=== PATIENT | male | born 1975 | race Hispanic/Latino ===

== ENCOUNTER 2020-09-11 03:03 | Emergency (ER) | payer BC ==
[2020-09-11] MEDS ORDERED: ONDANSETRON 4 MG/2 ML VIAL ONE (03:35)
[2020-09-11] MEDS ORDERED: MORPHINE 4 MG/ML SYR ONE (03:35)
[2020-09-11 03:47] LABS: Absolute Lymphocytes (CBC) 3.5 K/uL (0.7-4.9); Basophils % 0.6 % (0-1.3); Hematocrit 44.4 % (39.6-49.0); MPV 9.7 fL (7.6-11.3); RBC Red Blood Cell Count 4.72 M/uL (4.33-5.43)
[2020-09-11] MEDS ORDERED: FENTANYL CITR 100 MCG/2 ML ONE (04:00)
[2020-09-11] MEDS ORDERED: NA CHLORIDE 0.9% 1,000 ML ONE (04:01)
[2020-09-11 04:09] LABS: Albumin 3.9 g/dL (3.4-5.0); Bilirubin Direct 0.1 mg/dL (0-0.2); Bilirubin Total 0.4 mg/dL (0.2-1.0); Potassium 3.6 mmol/L (3.5-5.1); Protein, Total 8.1 g/dL (6.4-8.2)
[2020-09-11 04:22] LABS: Urine Blood 3+ (NEG); Urine Glucose NEGATIVE (NEG); Urine Protein 2+ (NEG); Urine Specific Gravity >1.030 (1.005-1.030)
[2020-09-11 04:28] LABS: Urine Bacteria 20-50 /HPF (NONE SEEN); Urine Culture Reflex Order REFLEXED; Urine Mucus 2+ /HPF (NONE SEEN); Urine RBC >50 /HPF (NONE SEEN)
--- NOTE | 2020-09-11 05:09 | EDPHYS ---
Physician Documentation [facility] Name: Gordy Quevedo Age: 45 yrs Sex: Male : 1975 Arrival Date: 09/11/2020 Time: 03:05 Bed 5 Private MD: ED Physician Sunday Chang HPI: 09/11 03:24 This 45 yrs old Male presents to ER via Unassigned with complaints of Back tw4 Pain. 03:24 The patient presents with pain that is acute. The symptoms are located in the low back. tw4 Onset: The symptoms/episode began/occurred today. Associated signs and symptoms: The patient has no apparent associated signs or symptoms. The problem was sustained The pain radiates to the groin, without known cause. Modifying factors: The patient symptoms are alleviated by nothing, the patient symptoms are aggravated by nothing. Severity of symptoms: At their worst the symptoms were moderate, in the emergency department the symptoms are unchanged. The patient has not experienced similar symptoms in the past. Historical: - Allergies: 03:15 No Known Allergies; jb4 - Home Meds: 03:15 None [Active]; jb4 - PMHx: 03:15 Kidney stones; jb4 - PSHx: 03:15 right knee; jb4 - Immunization history:: Adult Immunizations up to date. - Social history:: Smoking status: Patient denies any tobacco usage or history of. Patient uses alcohol, occasionally. Patient/guardian denies using street drugs. ROS: 03:24 Constitutional: Negative for fever, chills, and weight loss, Eyes: Negative for injury, tw4 pain, redness, and discharge, Cardiovascular: Negative for chest pain, palpitations, and edema, Respiratory: Negative for shortness of breath, cough, wheezing, and pleuritic chest pain, Abdomen/GI: Negative for abdominal pain, nausea, vomiting, diarrhea, and constipation, MS/Extremity: Negative for injury and deformity, Skin: Negative for injury, rash, and discoloration, Neuro: Negative for headache, weakness, numbness, tingling, and seizure. 03:24 Back: Positive for radiated pain. 03:24 : Positive for testicular pain Exam: 03:24 Constitutional: This is a well developed, well nourished patient who is awake, alert, tw4 and in no acute distress. Head/Face: Normocephalic, atraumatic. Chest/axilla: Normal chest wall appearance and motion. Nontender with no deformity. No lesions are appreciated. Cardiovascular: Regular rate and rhythm with a normal S1 and S2. No gallops, murmurs, or rubs. Normal PMI, no JVD. No pulse deficits. Respiratory: Lungs have equal breath sounds bilaterally, clear to auscultation and percussion. No rales, rhonchi or wheezes noted. No increased work of breathing, no retractions or nasal flaring. Abdomen/GI: Soft, non-tender, with normal bowel sounds. No distension or tympany. No guarding or rebound. No evidence of tenderness throughout. Male : Normal genitalia with no discharge or lesions. MS/ Extremity: Pulses equal, no cyanosis. Neurovascular intact. Full, normal range of motion. Neuro: Awake and alert, GCS 15, oriented to person, place, time, and situation. Cranial nerves II-XII grossly intact. Motor strength 5/5 in all extremities. Sensory grossly intact. Cerebellar exam normal. Normal gait. Vital Signs: 03:15 BP 162 / 89; Pulse 87; Resp 16; Temp 96.7(TE); Pulse Ox 97% on R/A; Weight 131.54 kg jb4 (R); Height 5 ft. 11 in. (180.34 cm); Pain 10/10; 04:00 BP 167 / 94; Pulse 78; Resp 16; Pulse Ox 96% on R/A; jb4 05:26 BP 138 / 90; Pulse 78; Resp 18; Temp 98; Pulse Ox 98% on R/A; ea 03:15 Body Mass Index 40.45 (131.54 kg, 180.34 cm) jb4 MDM: 03:18 Patient medically screened. tw4 06:35 Data reviewed: vital signs, nurses notes. Data reviewed: lab test result(s), CBC, tw4 electrolytes, hepatic panel, radiologic studies, CT scan. Data interpreted: Pulse oximetry: Interpretation: normal. Counseling: I had a detailed discussion with the patient and/or guardian regarding: the historical points, exam findings, and any diagnostic results supporting the discharge/admit diagnosis, lab results, radiology results. Medication response: morphine partially relieved the patient's pain. Response to treatment: the patient's symptoms have resolved after treatment, and as a result, I will discharge patient. Special discussion: Based on the patient's Hx, exam, and Dx evaluation, there is no indication for emergent surgery or inpatient Tx. It is understood by the patient/guardian that if the Sx's persist or worsen they need to return immediately for re-evaluation. 09/11 03:20 Order name: Basic Metabolic Panel 4 09/11 03:20 Order name: CBC with Diff tw4 09/11 03:20 Order name: Hepatic Function tw4 09/11 03:20 Order name: Lipase tw4 09/11 03:56 Order name: Urine Microscopic Only ea 09/11 04:16 Order name: Urine Dipstick--Ancillary (enter results) tt3 09/11 03:20 Order name: IV Saline Lock; Complete Time: 03:24 tw4 09/11 03:30 Order name: CT Stone Protocol 4 09/11 04:30 Order name: Urine Culture EDSC 09/11 03:20 Order name: Labs collected and sent; Complete Time: 03:24 [facility] 09/11 03:20 Order name: Urine Dipstick-Ancillary (obtain specimen); Complete Time: 05:12 tw4 Administered Medications: 03:31 Drug: morphine 4 mg Route: IVP; Site: right antecubital; 4 04:00 Follow up: Response: No adverse reaction; Pain is decreased; RASS: Alert and Calm (0) 4 03:31 Drug: Zofran (Ondansetron) 4 mg Route: IVP; Site: right antecubital; jb4 04:00 Follow up: Response: No adverse reaction; Nausea is decreased jb4 03:52 Drug: fentaNYL (PF) 25 mcg {Note: rass score 0.} Route: IVP; Site: right antecubital; jb4 04:20 Follow up: Response: No adverse reaction; Pain is decreased; RASS: Alert and Calm (0) 4 03:52 Drug: NS 0.9% 1000 ml Route: IV; Rate: 1 bolus; Site: right antecubital; jb4 04:45 Follow up: Response: No adverse reaction; IV Status: Completed infusion jb4 04:21 Drug: fentaNYL (PF) 25 mcg Route: IVP; Site: right antecubital; jb4 04:50 Follow up: Response: No adverse reaction; Pain is decreased; RASS: Alert and Calm (0) jb4 Disposition: 09/11/20 05:09 Discharged to Home. Impression: Calculus of ureter. - Condition is Stable. - Discharge Instructions: Renal Colic, Kidney Stones, [id number]. - Prescriptions for Ibuprofen 800 mg Oral Tablet - take 1 tablet by ORAL route every 8 hours As needed take with food; 30 tablet. Tylenol- Codeine #3 300-30 mg Oral Tablet - take 2 tablet by ORAL route every 6 hours As needed; 30 tablet. Zofran 4 mg Oral Tablet - take 1 tablet by ORAL route every 12 hours As needed; 6 tablet. Flomax 0.4 mg Oral Capsule, Sust. Release 24 hr - take 1 capsule by ORAL route once daily 1/2 hour following the same meal each day; 30 capsule. - Work release form, Medication Reconciliation Form, Thank You Letter, Antibiotic Education, Prescription Opioid Use form. - Follow up: Private Physician; When: Upon discharge from the Emergency Department; Reason: Recheck today's complaints, Continuance of care, Re-evaluation by your physician. Follow up: Kat Carrillo MD; When: Upon discharge from the Emergency Department; Reason: Recheck today's complaints, Continuance of care, Re-evaluation by your physician. - Problem is new. - Symptoms have improved. Signatures: Dispatcher [employer] EDFlavio Soriano RN RN jb4 Denise Capps RN RN ea Wadley, Terrence, MD MD tw4 Corrections: (The following items were deleted from the chart) 05:10 05:09 09/11/2020 05:09 Discharged to Home. Impression: Calculus of ureter. Condition is tw4 Stable. Forms are Medication Reconciliation Form, Thank You Letter, Antibiotic Education, Prescription Opioid Use. Follow up: Private Physician; When: Upon discharge from the Emergency Department; Reason: Recheck today's complaints, Continuance of care, Re-evaluation by your physician. Problem is new. Symptoms have improved. tw4 05:29 05:10 09/11/2020 05:09 Discharged to Home. Impression: Calculus of ureter. Condition is ea Stable. Discharge Instructions: Renal Colic, Kidney Stones, [id number]. Prescriptions for Ibuprofen 800 mg Oral Tablet - take 1 tablet by ORAL route every 8 hours As needed take with food; 30 tablet, Tylenol-Codeine #3 300-30 mg Oral Tablet - take 2 tablet by ORAL route every 6 hours As needed; 30 tablet, Zofran 4 mg Oral Tablet - take 1 tablet by ORAL route every 12 hours As needed; 6 tablet, Flomax 0.4 mg Oral Capsule, Sust. Release 24 hr - take 1 capsule by ORAL route once daily 1/2 hour following the same meal each day; 30 capsule. and Forms are Medication Reconciliation Form, Thank You Letter, Antibiotic Education, Prescription Opioid Use. Follow up: Private Physician; When: Upon discharge from the Emergency Department; Reason: Recheck today's complaints, Continuance of care, Re-evaluation by your physician. Follow up: Kat Carrillo; When: Upon discharge from the Emergency Department; Reason: Recheck today's complaints, Continuance of care, Re-evaluation by your physician. Problem is new. Symptoms have improved. tw4
--- NOTE | 2020-09-11 05:09 | ER ---
Nurse's Notes [facility] Name: Gordy Quevedo Age: 45 yrs Sex: Male : 1975 Arrival Date: 09/11/2020 Time: 03:05 Bed 5 Private MD: Diagnosis: Calculus of ureter Presentation: 09/11 03:15 Chief complaint: Patient states: I am having left sided testicular pain and back pain. jb4 It started at 1 am. I woke up and tried to pee and I couldn't. I had a kidney stone in the past and it felt just like this. 03:15 Coronavirus screen: Client denies travel out of the [place] in the last 14 days. At this jb4 time, the client does not indicate any symptoms associated with coronavirus-19. Ebola Screen: No symptoms or risks identified at this time. Initial Sepsis Screen: Does the patient meet any 2 criteria? No. Patient's initial sepsis screen is negative. Does the patient have a suspected source of infection? No. Patient's initial sepsis screen is negative. Risk Assessment: Do you want to hurt yourself or someone else? Patient reports no desire to harm self or others. Onset of symptoms was September 11, 2020. Transition of care: patient was not received from another setting of care. 03:15 Method Of Arrival: Wheelchair jb4 03:15 Acuity: LASHA 2 jb4 Historical: - Allergies: 03:15 No Known Allergies; jb4 - Home Meds: 03:15 None [Active]; jb4 - PMHx: 03:15 Kidney stones; jb4 - PSHx: 03:15 right knee; jb4 - Immunization history:: Adult Immunizations up to date. - Social history:: Smoking status: Patient denies any tobacco usage or history of. Patient uses alcohol, occasionally. Patient/guardian denies using street drugs. Screenin:15 Abuse screen: Denies threats or abuse. Nutritional screening: No deficits noted. jb4 Tuberculosis screening: No symptoms or risk factors identified. Fall Risk None identified. Assessment: 03:15 General: Appears in no apparent distress. uncomfortable, Behavior is calm, cooperative, jb4 appropriate for age. Pain: Complains of pain in left testicle Pain radiates to left low back Pain currently is 10 out of 10 on a pain scale. Quality of pain is described as shooting, stabbing. Neuro: Level of Consciousness is awake, alert, obeys commands, Oriented to person, place, time, situation. Cardiovascular: Patient's skin is warm and dry. Respiratory: Airway is patent Respiratory effort is even, unlabored, Respiratory pattern is regular, symmetrical. GI: No signs and/or symptoms were reported involving the gastrointestinal system. : Reports pain in left flank(s), in lower back testicle. EENT: No signs and/or symptoms were reported regarding the EENT system. Derm: Skin is intact, Skin is pink, warm \T\ dry. Musculoskeletal: Circulation, motion, and sensation intact. Range of motion: intact in all extremities. 04:13 Reassessment: Patient appears in no apparent distress at this time. Patient and/or jb4 family updated on plan of care and expected duration. Pain level reassessed. Patient is alert, oriented x 3, equal unlabored respirations, skin warm/dry/pink. PT reports pain is still /10, provider notified, see MAR for orders. Patient states feeling better. 05:21 Reassessment: Patient appears in no apparent distress at this time. Patient and/or jb4 family updated on plan of care and expected duration. Pain level reassessed. Patient is alert, oriented x 3, equal unlabored respirations, skin warm/dry/pink. 05:25 Reassessment: Patient and/or family updated on plan of care and expected duration. Pain ea level reassessed. Patient is alert, oriented x 3, equal unlabored respirations, skin warm/dry/pink. Discharge instruction given to patient, verbalized the understanding of instruction. Pt left ED ambulatory tolerating well. Vital Signs: 03:15 BP 162 / 89; Pulse 87; Resp 16; Temp 96.7(TE); Pulse Ox 97% on R/A; Weight 131.54 kg jb4 (R); Height 5 ft. 11 in. (180.34 cm); Pain 10/10; 04:00 BP 167 / 94; Pulse 78; Resp 16; Pulse Ox 96% on R/A; jb4 05:26 BP 138 / 90; Pulse 78; Resp 18; Temp 98; Pulse Ox 98% on R/A; ea 03:15 Body Mass Index 40.45 (131.54 kg, 180.34 cm) jb4 ED Course: 03:05 Patient arrived in ED. ag3 03:15 Arm band placed on right wrist. jb4 03:15 Patient has correct armband on for positive identification. Placed in gown. Bed in low jb4 position. Call light in reach. Side rails up X 1. Pulse ox on. NIBP on. 03:18 Sunday Chang MD is Attending Physician. tw4 03:21 Flavio Brooks, RN is Primary Nurse. jb4 03:25 Initial lab(s) drawn, by ED staff, sent to lab. Inserted saline lock: 22 gauge in right jb4 antecubital area, using aseptic technique. Blood collected. 03:27 Triage completed. jb4 04:48 CT Stone Protocol In Process Unspecified. EDMS 05:10 Kat Carrillo MD is Referral Physician. tw4 05:25 No provider procedures requiring assistance completed. IV discontinued, intact, ea bleeding controlled, No redness/swelling at site. Pressure dressing applied. Administered Medications: 03:31 Drug: morphine 4 mg Route: IVP; Site: right antecubital; 4 04:00 Follow up: Response: No adverse reaction; Pain is decreased; RASS: Alert and Calm (0) 4 03:31 Drug: Zofran (Ondansetron) 4 mg Route: IVP; Site: right antecubital; jb4 04:00 Follow up: Response: No adverse reaction; Nausea is decreased jb4 03:52 Drug: fentaNYL (PF) 25 mcg {Note: rass score 0.} Route: IVP; Site: right antecubital; jb4 04:20 Follow up: Response: No adverse reaction; Pain is decreased; RASS: Alert and Calm (0) jb4 03:52 Drug: NS 0.9% 1000 ml Route: IV; Rate: 1 bolus; Site: right antecubital; jb4 04:45 Follow up: Response: No adverse reaction; IV Status: Completed infusion jb4 04:21 Drug: fentaNYL (PF) 25 mcg Route: IVP; Site: right antecubital; jb4 04:50 Follow up: Response: No adverse reaction; Pain is decreased; RASS: Alert and Calm (0) [facility] Outcome: 05:09 Discharge ordered by . tw4 05:26 Discharged to home ambulatory, with family. ea 05:26 Condition: stable 05:26 Discharge instructions given to patient, family, Instructed on discharge instructions, follow up and referral plans. medication usage, Demonstrated understanding of instructions, follow-up care, medications, Prescriptions given X 3. 05:29 Patient left the ED. ashish Signatures: Dispatcher [employer] EDMS Flavio Brooks RN RN jb4 Denise Capps RN RN Sunday Govea MD MD tw4 Nydia Small ag3 Corrections: (The following items were deleted from the chart) 03:31 03:25 Inserted saline lock: 20 gauge in right forearm, using aseptic technique. Blood jb4 collected. jb4
[2020-09-11 05:36] VITALS: BP 138/90; TEMP 98; O2SAT 98
--- NOTE | 2020-09-12 11:13 | RAD REPORT ---
EXAM DESCRIPTION: CT - Stone Protocol - 09/11/2020 6:35 am CLINICAL HISTORY: The patient is 45 years old and is Male; FLANK PAIN TECHNIQUE: Axial computed tomography images of the abdomen and pelvis without intravenous contrast. Sagittal and coronal reformatted images were created and reviewed. This CT exam was performed usi ng one or more of the following dose reduction techniques: automated exposure control, adjustment o f the mA and/or kV according to patient size, and/or use of iterative reconstruction technique. COMPARISON: No relevant prior studies available. FINDINGS: LUNG BASES: Unremarkable. No mass. No consolidation. ABDOMEN: LIVER: The liver is enlarged and diffusely fatty. GALLBLADDER AND BILE DUCTS: No calcified stones. No ductal dilation. PANCREAS: Mild fatty infiltration pancreas is present. No ductal dilation. SPLEEN: Unremarkable. ADRENALS: Unremarkable. No mass. KIDNEYS AND URETERS: Mild right hydroureteronephrosis is present secondary to a [address] beyond the right UVJ within the base of the bladder. Edema of the right kidney with perinephric and periureteral stranding is present. Bilateral intrarenal calcifications are present. STOMACH AND BOWEL: The stomach is moderately distended with food contents. The small bowel is no rmal in caliber. Stool is present throughout colon. There is no mucosal thickening or evidence of bow el obstruction. PELVIS: APPENDIX: The appendix is normal in caliber without surrounding inflammation. BLADDER: The bladder is moderately distended. No stones. REPRODUCTIVE: Unremarkable as visualized. ABDOMEN and PELVIS: INTRAPERITONEAL SPACE: Unremarkable. No free air. No significant fluid collection. BONES/JOINTS: Minimal degenerative change of the lumbar spine is present. SOFT TISSUES: The soft tissues are normal. VASCULATURE: Unremarkable. No abdominal aortic aneurysm. LYMPH NODES: Unremarkable. No enlarged lymph nodes. IMPRESSION: 1. Mild right hydroureteronephrosis is present secondary to a 4 mm calculus just beyon d the right UVJ within the base of the bladder. 2. Bilateral nephrolithiasis. Electronically signed by: Saniya Wiley MD 09/11/2020 4:57 AM CDT Due to temporary technical issues with the PACS/Fluency reporting system, reports are being signed by the in house radiologist without review as a courtesy to ensure prompt reporting. The interpreting r adiologist is fully responsible for the content of the report.
== END 2020-09-11 05:29 | disposition home or self-care (01) ==
LOC: ER 03:03
DX: N20.1 Calculus of ureter (principal); Z87.442 Personal history of urinary calculi
CPT/HCPCS: 96361; 87088; 85025; 87086; 80048; 36415; 80076; 83690; 76377; 74176; 96375; 96374; 99284; J3010; J7030; J2405; 81003; 81015